=== PATIENT | female | born 1965 | race Two or more races ===

== ENCOUNTER → 2016-09-26 | Outpatient (CLI) | payer BC ==
--- NOTE | ~2016-09-26 | US77 ---
[facility] A Service of [facility] & [facility] RADIOLOGY TEXT RESULTS PATIENT: LYLE VIVEROS LOCATION: [facility] : 69 UNIT #: [id number] AGE: [address]: Cliff Peters MD SEX: F ORDER DR: [id number] [facility] [address] [place], [place] [address] [id number] O MR#: [id number] Acc #: [id number] NAME: LYLE MCQUEEN : 1965 SEX: F STUDY DATE/TIME: 09/26/2016 16:24 UNIT: [facility] ROOM: STUDY DESCRIPTION: US Kidney Bilateral Complete Attending Physician: Cliff Peters M.D. Referring Physician: Cliff Peters M.D. Ordering Physician: Cliff Peters M.D. Primary Care Physician: Primary Care Physician No MEDICAL IMAGING REPORT This report is preliminary unless electronic signature is present EXAM Renal ultrasound. HISTORY Pain since 05/2016. Previous lithotripsy. FINDINGS Longitudinal and transverse sonograms of the kidneys are obtained. The right kidney measures 11.4 cm and is sonographically normal. The left kidney measures 11.2 cm and is sonographically normally. There is no evidence of hydronephrosis or hydroureter. Scans were obtained through the bladder with brunner scale and color flow imaging and ureteral jets are identified bilaterally. CONCLUSION Normal. Dictated by... Sourav Bergman M.D. THIS IS AN ELECTRONICALLY VERIFIED REPORT Sourav Bergman M.D. at 09/30/2016 5:10 PM Char TD: 09/27/2016 06:55 JOB #: [id number] MEDICAL IMAGING REPORT Page 1 of 1 COPY
== END | disposition home or self-care (01) ==
LOC: CGUS 15:52
DX: N13.30 Unspecified hydronephrosis (principal)
CPT/HCPCS: 76770